=== PATIENT | male | born 1990 | race African-American/Black ===

== ENCOUNTER 2018-05-21 23:13 | Emergency (ER) | payer OTHER ==
[~2018-05-21] VITALS: Ht 175.3 cm; Wt 104.3 kg
--- NOTE | 2018-05-21 23:30 | NUR ---
Pt. BIB [facility] accompanied by PD under arrest and in handcuffs for suspected burglary for SOB - VSS, no s/s respiratory distress, pt. is A/Ox2 but cannot state how or why he is here, reports smoking and injecting methamphetamine and admits to being on parole, pt. is disheveled and covered in mud w/ rips and tears in clothes,
--- NOTE | 2018-05-22 00:07 | NUR ---
pt. back from [place], placed in handcuffs in stretcher by PD,
--- NOTE | 2018-05-22 00:20 | NUR ---
Called [facility] for CT read
[2018-05-22] MEDS ORDERED: PANTOPRAZOLE SODIUM 40 MG TABLET.DR PO ONE ×2 (01:00→01:05)
--- NOTE | 2018-05-22 01:16 | NUR ---
Patient discharged to home in stable conditon. Written and verbal after care instructions given. Patient verbalizes understanding of instructions. Pt. d/c per MD orders, d/c papers signed, all belongings w/ pt., ID band removed, left in custody of [place] [employer] Officer [place] #[id number] for booking, NAD
== END 2018-05-22 01:22 ==
LOC: ER 23:14
DX: F15.10 Other stimulant abuse, uncomplicated (principal); R51 Headache
CPT/HCPCS: 70450; A4663